=== PATIENT | female | born 1960 | race Caucasian/White ===

== ENCOUNTER → 2020-06-10 | Day surgery (SDC) | payer OTHER ==
[~2020-06-10] MED LIST: GLIMEPIRIDE2 MG PO; INSULIN REGULAR, HUMAN 100 UNIT/1 ML 3ML VIAL ONE; JANUMET 50-1,01 EACH PO; LIDOCAINE HCL 2% LOCAL INJ 5 ML SDV VIAL INJ ONE; LISINOPRIL2.5 MG PO; MIDAZOLAM HCL 2 MG/2 ML VIAL ONE; PIOGLITAZONE HC45 MG PO; PROPOFOL IV EMULSION 10 MG/ML 20 ML VIAL ONE
[2020-06-10 07:35] VITALS: BP 163/92
--- NOTE | 2020-06-10 07:57 | Operative Report ---
DATE OF PROCEDURE: 06/10/2020 SURGEON: Alex Adams MD PREOPERATIVE DIAGNOSES: 1. Chronic gastroesophageal reflux disease. 2. Type 2 diabetes mellitus. POSTOPERATIVE DIAGNOSES: 1. Hiatal hernia. 2. Distal esophagitis. 3. Moderate gastritis. 4. Chronic gastroesophageal reflux disease. 5. Type 2 diabetes mellitus. PREOPERATIVE INDICATION: Assess for mucosal disease. PROCEDURES: EGD with multiple biopsies (CPT 10702). ANESTHESIA: Moderate sedation with IV propofol. ASSISTANTS: None. FLUIDS: As per anesthesia. ESTIMATED BLOOD LOSS: Minimal. DRAINS: None. COMPLICATIONS: None. SPECIMENS: 1. Cold forceps biopsy of distal esophagus. 2. Cold forceps biopsy of distal stomach at the level of the antrum. GRAFTS: None. FINDINGS: Moderate-sized hiatal hernia with distal esophagitis. Moderate gastritis in the antrum. PROCEDURE IN DETAIL: The patient was brought to the endoscopy suite and sedated with IV propofol. A preprocedure pause was performed. An adult-sized endoscope was introduced to the oropharynx and guided up to the level of the pylorus. The pyloric valve was quite spasmodic, thus we were unable to intubate the duodenum. The mucosal surface of the stomach displayed evidence for gastritis and erythema. This was biopsied x2 with cold forceps. There was also inflammation in the distal esophagus. There was a moderate-sized hiatal hernia noted. Biopsies were obtained of the distal esophagus as well. Prior to removing the endoscope, the stomach was desufflated. The endoscope was removed. The patient tolerated the procedure well. Type of wound is type 1, all surgical sponge and instrument counts were correct. Alex Adams MD C/MODL /[id number]
== END | disposition home or self-care (01) ==
LOC: ENDO 05:26
PROVIDERS: ATTEND Surgery
DX: K21.9 Gastro-esophageal reflux disease without esophagitis (principal); K29.70 Gastritis, unspecified, without bleeding; K20.9 Esophagitis, unspecified; K44.9 Diaphragmatic hernia without obstruction or gangrene; E11.9 Type 2 diabetes mellitus without complications; Z01.810 Encounter for preprocedural cardiovascular examination; Z01.812 Encounter for preprocedural laboratory examination; Z11.59 Encounter for screening for other viral diseases; Z79.84 Long term (current) use of oral hypoglycemic drugs
CPT/HCPCS: 36415; 43239; 82948; 88305; 88312; 93005; J2001; J2250; J2704; U0002; J1817

== ENCOUNTER 2022-01-12 13:42 | Emergency (ER) | payer BC, OTHER ==
[~2022-01-12] VITALS: Ht 152.4 cm; Wt 81.6 kg
[~2022-01-12 13:42] MED LIST changes: -INSULIN REGULAR, HUMAN 100 UNIT/1 ML 3ML VIAL ONE; -LIDOCAINE HCL 2% LOCAL INJ 5 ML SDV VIAL INJ ONE; -MIDAZOLAM HCL 2 MG/2 ML VIAL ONE; -PROPOFOL IV EMULSION 10 MG/ML 20 ML VIAL ONE
[2022-01-12] MEDS ORDERED: ACETAMINOPHEN 325 MG TAB PO PRN (14:00)
[2022-01-12 14:19] LABS: BASOPHILS % 0.3 % (0.0-1.0); EOSINOPHILS # (AUTO) 0.2 (0.0-0.4); EOSINOPHILS % 3.2 % (0.0-6.0); HEMATOCRIT 36.6 % (34.2-44.1); HEMOGLOBIN 10.5 g/dL (12.0-16.0); LYMPHOCYTES # (AUTO) 0.6 (1.0-3.2); MEAN CORPUSCULAR HEMOGLOBIN 21.7 pg (28-32); MEAN CORPUSCULAR HGB CONC 28.7 g/dL (31-35); MEAN CORPUSCULAR VOLUME 75.8 fL (81-99); MONOCYTES # (AUTO) 0.4 (0.2-0.8); MONOCYTES % 6.3 % (4.4-11.3); NEUTROPHILS # (AUTO) 5.6 (2.1-6.9); NEUTROPHILS % 81.8 % (38.7-80.0); PLATELET COUNT 269 x10e3/uL (140-360); RED BLOOD COUNT 4.83 x10e6/uL (3.6-5.1); RED CELL DISTRIBUTION WIDTH 17.3 % (11.7-14.4)
[2022-01-12 14:37] LABS: ALBUMIN/GLOBULIN RATIO 0.8 (0.8-2.0); ANION GAP 14.7 mmol/L (8-16); CALCIUM 8.8 mg/dL (8.4-10.2); POTASSIUM 3.7 mmol/L (3.5-5.1)
[2022-01-12 15:51] LABS: COLOR,URINE YELLOW (YELLOW); LEUKOCYTE ESTERASE ,URINE NEGATIVE (NEGATIVE); NITRITE,URINE NEGATIVE (NEGATIVE); PROTEIN,URINE DIPSTICK 2+ (NEGATIVE)
[2022-01-12 15:52] LABS: KETONES,URINE 1+ (NEGATIVE); URINE UROBILINOGEN 0.2 mg/dL (0.2 - 1)
[2022-01-12] MEDS ORDERED: AZITHROMYCIN 250 MG TAB PO ONE (16:00)
[2022-01-12 16:01] LABS: CLARITY,URINE SL CLOUDY (CLEAR)
[2022-01-12 16:03] LABS: BACTERIA,URINE MANY /HPF; WBC,URINE (MAN) 21-50 /HPF (0-5)
[2022-01-12 16:04] LABS: EPITHELIAL CELLS,URINE MODERATE /LPF; TRANSITIONAL EPI CELLS,URINE MODERATE
[2022-01-12 16:06] LABS: MUCUS,URINE MODERATE (RARE)
[2022-01-12] MEDS ORDERED: ZITHROMAX250 MG PO (16:27)
== END 2022-01-12 16:42 | disposition home or self-care (01) ==
LOC: ER 13:49
DX: R50.9 Fever, unspecified (principal); J18.9 Pneumonia, unspecified organism; Z20.822 Contact with and (suspected) exposure to COVID-19
CPT/HCPCS: 36415; 71045; 80053; 81001; 83605; 83880; 84484; 85025; 87040; 99284; U0002